=== PATIENT | male | born 1990 | race African-American/Black ===

== ENCOUNTER 2018-09-10 13:04 | Emergency (ER) | payer OTHER ==
[~2018-09-10] VITALS: Ht 185.4 cm; Wt 62.3 kg
[2018-09-10 13:33] VITALS: Ht 185.4 cm; Wt 62.3 kg
[2018-09-10 17:26] VITALS: BP 113/74
== END 2018-09-10 17:26 | disposition home or self-care (01) ==
LOC: ED 13:04
DX: H57.89 Other specified disorders of eye and adnexa (principal); Z31.89 Encounter for other procreative management; Z88.0 Allergy status to penicillin